=== PATIENT | female | born 1995 | race Caucasian/White ===

== ENCOUNTER 2021-06-29 11:12 | Emergency (ER) | payer BC ==
[2021-06-29 12:09] LABS: HEMOGLOBIN 14.5 gm/dl (12.3-15.3); RED BLOOD COUNT 4.72 M/UL (4.00-5.10); WHITE BLOOD COUNT 8.2 K/UL (4.5-11.0)
[2021-06-29 12:39] LABS: BUN/CREATININE RATIO 15 (0-10)
== END 2021-06-29 11:35 | disposition home or self-care (01) ==
LOC: ER1 11:12
PROVIDERS: Physician Assistant
DX: R10.2 Pelvic and perineal pain (principal)
CPT/HCPCS: 76817; 80048; 81001; 84702; 85025; 86900; 86901; 99284

== ENCOUNTER 2021-08-23 06:36 | Emergency (ER) | payer BC ==
[2021-08-23 08:25] LABS: HEMOGLOBIN 14.8 gm/dl (12.3-15.3); RED BLOOD COUNT 4.89 M/UL (4.00-5.10); WHITE BLOOD COUNT 7.4 K/UL (4.5-11.0)
[2021-08-23 08:49] LABS: BUN/CREATININE RATIO 15 (0-10)
[2021-08-23] MEDS ORDERED: ONDANSETRON ODT4 MG PO (10:59)
[2021-08-23] MEDS ORDERED: NEXIUM20 MG PO (10:59)
[2021-08-24] MEDS ORDERED: PROTONIX40 MG PO (18:31)
== END 2021-08-23 11:07 | disposition home or self-care (01) ==
LOC: ER1 06:36
PROVIDERS: Nurse Practitioner
DX: T50.901A Poisoning by unspecified drugs, medicaments and biological substances, accidental (unintentional), initial encounter (principal); R10.13 Epigastric pain; Z88.0 Allergy status to penicillin; R10.816 Epigastric abdominal tenderness; Z20.822 Contact with and (suspected) exposure to COVID-19
CPT/HCPCS: 0240U; 71045; 80053; 81001; 82150; 83690; 84702; 84703; 85025; 99284; J7030; Q9967

== ENCOUNTER 2021-08-24 17:08 | Emergency (ER) | payer BC ==
[~2021-08-24 17:08] MED LIST: NEXIUM20 MG PO; ONDANSETRON ODT4 MG PO
[2021-08-24 17:51] LABS: HEMOGLOBIN 14.3 gm/dl (12.3-15.3); RED BLOOD COUNT 4.6 M/UL (4.00-5.10); WHITE BLOOD COUNT 9.6 K/UL (4.5-11.0)
[2021-08-24 18:11] LABS: BUN/CREATININE RATIO 16 (0-10)
[2021-08-24] MEDS ORDERED: PROTONIX40 MG PO (18:31)
== END 2021-08-24 18:50 | disposition home or self-care (01) ==
LOC: ER1 17:08
PROVIDERS: Emergency Medicine
DX: R10.9 Unspecified abdominal pain (principal); Z90.49 Acquired absence of other specified parts of digestive tract
CPT/HCPCS: 80053; 81001; 82550; 82553; 83690; 84484; 84703; 85025; 85379; 96374; 99284; C9113

== ENCOUNTER → 2021-11-20 | Outpatient (CLI) | payer BC ==
[~2021-11-20] MED LIST changes: +GLUCOPHAGE 500500 MG PO; +LEXAPRO10 MG PO; +ONDANSETRON HCL4 MG PO; +PROTONIX40 MG PO
== END ==
LOC: CT 13:25
DX: I88.0 Nonspecific mesenteric lymphadenitis (principal)
CPT/HCPCS: Q9967

== ENCOUNTER 2021-12-31 16:44 | Emergency (ER) | payer BC ==
[2021-12-31 17:23] LABS: HEMOGLOBIN 13.7 gm/dl (12.3-15.3); RED BLOOD COUNT 4.3 M/UL (4.00-5.10); WHITE BLOOD COUNT 10.2 K/UL (4.5-11.0)
[2021-12-31 17:49] LABS: BUN/CREATININE RATIO 13 (0-10)
[2021-12-31] MEDS ORDERED: REGLAN10 MG PO (20:33)
[2021-12-31] MEDS ORDERED: BENTYL 20MG TAB20 MG PO (20:33)
== END 2021-12-31 20:52 | disposition home or self-care (01) ==
LOC: ER1 16:44
DX: O99.891 Other specified diseases and conditions complicating pregnancy (principal); M54.50 Low back pain, unspecified; O99.331 Smoking (tobacco) complicating pregnancy, first trimester; F17.290 Nicotine dependence, other tobacco product, uncomplicated; Z3A.08 8 weeks gestation of pregnancy; Z90.49 Acquired absence of other specified parts of digestive tract; Z88.0 Allergy status to penicillin
CPT/HCPCS: 76817; 80053; 81001; 84702; 85025; 99284